=== PATIENT | female | born 1990 | race Caucasian/White ===

== ENCOUNTER 2018-10-18 16:44 | Emergency (ER) | payer OTHER, SELFPAY ==
--- NOTE | 2018-10-18 18:44 | RAD REPORT ---
EXAM DESCRIPTION: RAD - Hand Right 3 View - 10/18/2018 6:34 pm CLINICAL HISTORY: Right hand pain following trauma COMPARISON: Right hand March 2015 FINDINGS: Transverse fracture is present near the base of the fifth metacarpal. Sagittal fracture li ne extending articular surface is suspected. Minimal angulation deformity is seen. No distraction or overlap of the fracture fragments. No other fracture changes identifiable. There is no dislocation or periosteal reaction noted. No foreign body or other soft tissue abnormality. IMPRESSION: Fracture near the base of the fifth metacarpal with no distraction or significant angula tion deformity.
--- NOTE | 2018-10-18 19:10 | EDPHYS ---
Physician Documentation [facility] Name: Kelly Terrazas Age: 28 yrs Sex: Female : 1990 Arrival Date: 10/18/2018 Time: 16:47 Bed 24 Private MD: None, None ED Physician Hari Barnes HPI: 10/18 18:59 This 28 yrs old Female presents to ER via Ambulatory with complaints of Hand cp Injury. 18:59 The patient or guardian reports injury, pain, swelling, tenderness. The complaints cp affect the right hand. Context: resulted from using own fist to strike, a solid object. Onset: The symptoms/episode began/occurred yesterday. Associated signs and symptoms: Pertinent negatives: cyanosis distally, numbness distally. 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 - Social history:: Smoking status: Patient/guardian denies using tobacco, Smoking status: Patient uses tobacco products, "nicotine use via vape pen". - Ebola Screening: : Patient denies travel to an Ebola-affected area in the 21 days before illness onset. ROS: 19:00 Constitutional: Negative for fever, chills, and weight loss. cp 19:00 Cardiovascular: Negative for chest pain, palpitations. 19:00 Respiratory: Negative for cough, shortness of breath, wheezing. 19:00 Abdomen/GI: Negative for abdominal pain, nausea, vomiting, and diarrhea. 19:00 MS/extremity: Positive for injury or acute deformity, ecchymosis, pain, swelling, tenderness, of the right hand, Negative for paresthesias. 19:00 Neuro: Negative for altered mental status, numbness, weakness. 19:00 All other systems are negative. Exam: 19:01 Head/Face: Normocephalic, atraumatic. cp 19:01 Constitutional: The patient appears in no acute distress, alert, awake, non-toxic, well developed, well nourished. 19:01 Eyes: Periorbital structures: appear normal, Conjunctiva: normal, Lids and lashes: appear normal, bilaterally. 19:01 ENT: External ear(s): are unremarkable, Nose: is normal, Posterior pharynx: is normal, airway is patent. 19:01 Chest/axilla: Inspection: normal. 19:01 Cardiovascular: Rate: normal. 19:01 Respiratory: the patient does not display signs of respiratory distress, Respirations: normal, no use of accessory muscles, no retractions, no splinting, no tachypnea. 19:01 Musculoskeletal/extremity: Extremities: grossly normal except: noted in the ulna side right hand: decreased ROM, ecchymosis, pain, swelling, tenderness, Perfusion: the extremity is normally perfused throughout, Sensation intact. 19:01 Skin: intact w/o open wounds of right hand. Vital Signs: 17:15 BP 116 / 54; Pulse 79; Resp 17; Temp 98.6(TE); Pulse Ox 100% on R/A; Weight 68.04 kg tw2 (R); Height 5 ft. 8 in. (172.72 cm); Pain 9/10; 19:50 BP 120 / 78; Pulse 80; Resp 18; Temp 98.7; Pulse Ox 100% on R/A; Pain 0/10; mg2 17:15 Body Mass Index 22.81 (68.04 kg, 172.72 cm) tw2 Procedures: 19:45 Splinting: Splint applied to right hand using Orthoglass splint, ulna gutter type. cp applied by tech. Examined by me, post splint application: neurovascular intact, Patient tolerated well. MDM: 18:34 Patient medically screened. cp 19:00 Differential diagnosis: dislocation, open fracture, closed fracture, contusion. cp 19:08 Data reviewed: vital signs, nurses notes, radiologic studies, plain films, and as a cp result, I will discharge patient. 19:08 Test interpretation: by ED physician or midlevel provider: plain radiologic studies, cp xrays show fracture base of fifth metacarpal. 19:08 Counseling: I had a detailed discussion with the patient and/or guardian regarding: the cp historical points, exam findings, and any diagnostic results supporting the discharge/admit diagnosis, radiology results, the need for outpatient follow up, a hand specialist, to return to the emergency department if symptoms worsen or persist or if there are any questions or concerns that arise at home. Response to treatment: the patient's symptoms have mildly improved after treatment, and as a result, I will discharge patient. 10/18 17:56 Order name: Hand Right 3 View XRAY; Complete Time: 19:29 snw 10/18 19:30 Interpretation: Report reviewed. cp 10/18 18:56 Order name: Splint - Ulnar Gutter; Complete Time: 19:35 cp 10/18 19:52 Order name: Sling; Complete Time: 19:52 mg2 Administered Medications: 19:11 Drug: Ibuprofen 800 mg Route: PO; mg2 19:52 Follow up: Response: No adverse reaction; Marked relief of symptoms mg2 Disposition: 10/19 19:17 Co-signature as Attending Physician, Hari Barnes MD I agree with the assessment and kdr plan of care. Disposition: 10/18/18 19:09 Discharged to Home. Impression: Nondisplaced fracture of base of fifth metacarpal bone, right hand. - Condition is Stable. - Discharge Instructions: Metacarpal Fracture. - Prescriptions for Ibuprofen 800 mg Oral Tablet - take 1 tablet by ORAL route every 8 hours As needed take with food; 30 tablet. Tylenol- Codeine #3 300-30 mg Oral Tablet - take 2 tablets by ORAL route every 6 hours As needed; 15 tablet. - Medication Reconciliation Form, Thank You Letter, Antibiotic Education, Prescription Opioid Use form. - Follow up: Darin Hall MD; When: 2 - 3 days; Reason: fracture proximal right fifth metacarpal. - Problem is new. - Symptoms have improved. Signatures: Dispatcher [employer] EDMS Hari Barnes MD MD [facility] Sandeep Garcia PA PA cp Sonia Ruiz RN RN tw2 Delmar Winston RN RN mg2 Corrections: (The following items were deleted from the chart) 10/18 19:53 19:09 10/18/2018 19:09 Discharged to Home. Impression: Nondisplaced fracture of base of mg2 fifth metacarpal bone, right hand. Condition is Stable. Forms are Medication Reconciliation Form, Thank You Letter, Antibiotic Education, Prescription Opioid Use. Follow up: Darin Hall; When: 2 - 3 days; Reason: fracture proximal right fifth metacarpal. Problem is new. Symptoms have improved. cp
--- NOTE | 2018-10-18 19:10 | ER ---
Nurse's Notes [facility] Name: Kelly Terrazas Age: 28 yrs Sex: Female : 1990 Arrival Date: 10/18/2018 Time: 16:47 Bed 24 Private MD: None, None Diagnosis: Nondisplaced fracture of base of fifth metacarpal bone, right hand Presentation: 10/18 17:14 Presenting complaint: Patient states: i think i broke my RIGHT had, i jammed it into tw2 the wall, i was trying to stop myself and the palm of my right hand got jammed up. Transition of care: patient was not received from another setting of care. Onset of symptoms was October 18, 2018. Risk Assessment: Do you want to hurt yourself or someone else? Patient reports no desire to harm self or others. Initial Sepsis Screen: Does the patient meet any 2 criteria? No. Patient's initial sepsis screen is negative. Does the patient have a suspected source of infection? No. Patient's initial sepsis screen is negative. Care prior to arrival: None. 17:14 Method Of Arrival: Ambulatory tw2 17:14 Acuity: DANNIELLE 4 tw2 Triage Assessment: 17:16 General: Appears in no apparent distress. slender, Behavior is calm, cooperative, tw2 appropriate for age. Pain: Complains of pain in right hand. Musculoskeletal: Circulation, motion, and sensation intact. Range of motion: intact in all extremities, Reports bruising to the right palm and swelling. Injury Description: "i jammed it into a wall" "it happened late last night". 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 - Social history:: Smoking status: Patient/guardian denies using tobacco, Smoking status: Patient uses tobacco products, "nicotine use via vape pen". - Ebola Screening: : Patient denies travel to an Ebola-affected area in the 21 days before illness onset. Screenin:13 Abuse screen: Denies threats or abuse. Denies injuries from another. Nutritional mg2 screening: No deficits noted. Tuberculosis screening: No symptoms or risk factors identified. Fall Risk None identified. Assessment: 19:11 General: Appears in no apparent distress. comfortable, Behavior is calm, cooperative. mg2 Pain: Complains of pain in right hand Pain does not radiate. Pain currently is 6 out of 10 on a pain scale. Quality of pain is described as aching, Pain began 1 day ago. Is intermittent. Neuro: Level of Consciousness is awake, alert, obeys commands, Oriented to person, place, time, situation. Cardiovascular: Capillary refill < 3 seconds Patient's skin is warm and dry. Respiratory: Airway is patent Respiratory effort is even, unlabored, Respiratory pattern is regular, symmetrical. GI: No signs and/or symptoms were reported involving the gastrointestinal system. : No signs and/or symptoms were reported regarding the genitourinary system. EENT: No signs and/or symptoms were reported regarding the EENT system. Derm: Skin is intact, is healthy with good turgor, Skin is pink, warm \\T\\ dry. normal. Musculoskeletal: Circulation, motion, and sensation intact. Capillary refill < 3 seconds, Swelling present in right hand. Injury Description: fracture. 19:17 Reassessment: patient for discharge after the application of splint. mg2 19:51 Reassessment: splint checked by Radha Hopkins prior to discharge. mg2 Vital Signs: 17:15 BP 116 / 54; Pulse 79; Resp 17; Temp 98.6(TE); Pulse Ox 100% on R/A; Weight 68.04 kg tw2 (R); Height 5 ft. 8 in. (172.72 cm); Pain 9/10; 19:50 BP 120 / 78; Pulse 80; Resp 18; Temp 98.7; Pulse Ox 100% on R/A; Pain 0/10; mg2 17:15 Body Mass Index 22.81 (68.04 kg, 172.72 cm) tw2 ED Course: 16:47 Patient arrived in ED. mr 16:47 None, None is Private Physician. mr 17:15 Triage completed. tw2 17:15 Arm band placed on. tw2 18:34 Sandeep Garcia PA is PHCP. cp 18:34 Hari Barnes MD is Attending Physician. cp 18:34 Hand Right 3 View XRAY In Process Unspecified. EDMS 18:40 PHCP role handed off by Sandeep Garcia PA snw 18:40 Grace Goodman FNP-C is PHCP. snw 18:43 PHCP role handed off by Grace Goodman FNP-C cp 18:43 Sandeep Garcia PA is PHCP. cp 18:57 Delmar Winston, RN is Primary Nurse. mg2 19:07 Dairn Hall MD is Referral Physician. cp 19:13 Patient has correct armband on for positive identification. Door closed. mg2 19:13 No provider procedures requiring assistance completed. Patient did not have IV access mg2 during this emergency room visit. 19:51 Orthoglass splint: Ulnar gutter/Boxer splint applied on right forearm. applied by isela Sharpe weight loss consultant Sling applied to right arm. Administered Medications: 19:11 Drug: Ibuprofen 800 mg Route: PO; mg2 19:52 Follow up: Response: No adverse reaction; Marked relief of symptoms mg2 Outcome: 19:09 Discharge ordered by MD. cp 19:53 Discharged to home ambulatory, with family. mg2 19:53 Condition: stable 19:53 Discharge instructions given to patient, Instructed on discharge instructions, follow up and referral plans. medication usage, Demonstrated understanding of instructions, follow-up care, medications, Prescriptions given X 2. 19:53 Patient left the ED. mg2 Signatures: Dispatcher [employer] EDMS Grace Goodman FNP-C FNP-Hussein Vandana Sanz Sandeep Garcia PA PA cp Wise, Tara, RN RN tw2 Delmar Winston, IRIS RN mg2
[2018-10-18] MEDS ORDERED: IBUPROFEN 400 MG TAB ONE (19:15)
[2018-10-18 21:24] VITALS: O2SAT 100
[2018-10-18 21:26] VITALS: BP 120/78; TEMP 98.7
== END 2018-10-18 19:53 | disposition home or self-care (01) ==
LOC: ER 16:44
PROC: 2W3CX1Z Immobilization of Right Lower Arm using Splint (ICD-10-PCS; principal; 2018-10-18)
DX: S62.346A Nondisplaced fracture of base of fifth metacarpal bone, right hand, initial encounter for closed fracture (principal); W22.8XXA Striking against or struck by other objects, initial encounter; D64.9 Anemia, unspecified; Z72.0 Tobacco use
CPT/HCPCS: 99284